=== PATIENT | male | born 1955 | race Caucasian/White ===

== ENCOUNTER → 2019-01-10 16:21 | Outpatient (CLI) | payer OTHER, SELFPAY ==
[2019-01-10 17:26] LABS: Add Manual Diff / Slide Review NO; Basophils Absolute Auto 0 /uL (0-100); Basophils Percent Auto 0.3 % (0-2); Eosinophils Absolute Auto 0 /uL (0-450); Eosinophils Percent Auto 0.5 % (2-4); Hematocrit 46.8 % (41-53); Hemoglobin 15.9 g/dL (13.5-17.5); Lymphocytes Absolute Auto 1100 /uL (1100-4500); Lymphocytes Percent Auto 20.5 % (25-40); Mean Corpuscular HGB Conc 33.9 % (30-36); Mean Corpuscular Volume 94.3 fL (80-100); Monocytes Absolute Auto 400 /uL (0-900); Monocytes Percent Auto 7.9 % (3-14); Neutrophils Absolute Auto 3900 /uL (1500-7000); Neutrophils Percent Auto 70.8 % (50-75); Platelet Count 215 X10^3/uL (150-400); Red Blood Cell Count 4.97 X10^6/uL (4.5-5.9); Red Cell Distribution Width 13.4 % (11.6-14.8); White Blood Cell Count 5.5 X10^3/uL (4.5-11.0)
[2019-01-10 17:31] LABS: Alanine Aminotransferase 23 IU/L (21-72); Albumin 4.3 g/dL (3.5-5.0); Albumin Globulin Ratio 1.7 (1.0-2.8); Alkaline Phosphatase 53 U/L (38-126); Aspartate Aminotransferase 31 IU/L (17-59); BUN Creatinine Ratio 23.8 (6-22); Bilirubin Total 0.7 mg/dL (0.2-1.3); Blood Urea Nitrogen 19 mg/dL (9-20); Calcium 9.9 mg/dL (8.4-10.2); Carbon Dioxide 30 mmol/L (22-32); Chloride 102 mmol/L (98-107); Estimated Glomerular Filt Rate > 60.0 mL/min (>60); Globulin 2.5 g/dL (1.7-4.1); Glucose 94 mg/dL (80-110); HEMOLYSIS 16 (0-50); Potassium 4.2 mmol/L (3.4-5.1); Sodium 139 mmol/L (137-145); Total Protein 6.8 g/dL (6.3-8.2)
== END ==
PROVIDERS: Visit Provider Student in an Organized Health Care Education/Training Program
DX: R10.2 Pelvic and perineal pain (principal)
CPT/HCPCS: 80053; 85025

== ENCOUNTER → 2019-01-12 08:27 | Outpatient (CLI) | payer OTHER, SELFPAY ==
--- NOTE | 2019-01-12 | DI.US.S_ITS ---
PROCEDURE: US ABDOMEN COMPLETE INDICATIONS: Pelvic and perineal pain TECHNIQUE: Real-time scanning was performed of the abdominal and retroperitoneal organs, with image documentation. COMPARISON: None. FINDINGS: Liver: Liver is normal in size and homogeneous in echotexture. Gallbladder: Gallbladder is normal in sonographic appearance without gallstones, gallbladder wall thickening, pericholecystic fluid, or abnormal sonographic Goodman's. Biliary ducts: Intrahepatic bile ducts are non-dilated. Extrahepatic bile duct caliber measures 4 mm. Normal is 6-7 mm or less in diameter, or 10 mm or less post-cholecystectomy. Pancreas: Visualized portions of the pancreas are sonographically normal. Spleen: Spleen is normal in size and homogeneous in echotexture. Kidneys: Kidneys are normal in size and echotexture. Right kidney measures 12.8 cm long; left kidney measures 12.2 cm long. Slight lobular left renal contour without focal mass lesions, likely congenital in etiology. No hydronephrosis or nephrolithiasis. No solid masses. Aorta: Visualized aorta is normal in caliber at less than 3 cm. Iliacs: Proximal common iliac arteries are normal in caliber at less than 2.5 cm. IVC: Intrahepatic inferior vena cava is patent. Miscellaneous: No free abdominal fluid. Limited evaluation of the urinary bladder secondary to incomplete distention prior to start of the study. IMPRESSION: 1. Abdomen without acute sonographic abnormalities. 2. Slight lobular contour of the left kidney without focal mass or hydronephrosis. Findings may be congenital in etiology. 3. Suboptimal visualization of the urinary bladder secondary to minimal distention/filling prior to today's study. Dictated by: Eliot Roberts M.D. on 01/12/2019 at 10:29 Approved by: Eliot Roberts M.D. on 01/12/2019 at 10:33
== END ==
PROVIDERS: PCP Student in an Organized Health Care Education/Training Program; Referring Provider Urology; Visit Provider Student in an Organized Health Care Education/Training Program
DX: R10.2 Pelvic and perineal pain (principal)
CPT/HCPCS: 76700

== ENCOUNTER 2019-04-15 12:33 | Day surgery (SDC) | payer OTHER, SELFPAY ==
[2019-04-15 12:55] VITALS: BMI 24.8
[2019-04-15 13:00] VITALS: BP 129/82; PULSE 67; RESP 12; TEMP 35.9; O2SAT 100
[2019-04-15] MEDS: SODIUM CHLORIDE 0.9% 1,000 ML 200 ML IV (13:08)
--- NOTE | 2019-04-15 13:34 | PM.HP.1 ---
History of Present Illness History of Present Illness Date Patient Seen: 04/15/19 Time Patient Seen: 13:40 Chief complaint: [id number] Narrative: Asymptomatic patient here for a screening colonoscopy Patient History Medical History Diverticulosis (Acute) GERD (gastroesophageal reflux disease) (Acute) Prostate CA (Acute) Family & Social History Social History: household members spouse Meds Home Medications and Allergies Home Medications Medication Instructions Recorded Confirmed Type No Known Home Medications 04/15/19 04/15/19 History Allergies Allergy/AdvReac Type Severity Reaction Status Date / Time No Known Drug Allergies Allergy Verified 04/15/19 12:53 Review of Systems Review of Systems ROS Unobtainable: All systems reviewed & are unremarkable except as noted in HPI and below Exam Vital Signs (past 8 hours): - 04/15/19 13:00 Temperature 96.7 F L Pulse Rate 67 Respiratory Rate 12 Blood Pressure 129/82 Pulse Oximetry 100 Oxygen Delivery Method Room Air Narrative Exam Narrative: 63-year-old white male resting comfortably in bed alert and oriented with no complaints Lungs are clear Heart regular rhythm no murmur Abdomen soft nontender no organomegaly Rectal to be done at colonoscopy Assessment & Plan Assessment & Plan narrative: Patient here for screening colonoscopy is asymptomatic. Last colonoscopy about 5 years ago. Patient has no unanswered questions
[2019-04-15] MEDS: fentaNYL 250 MCG/5 ML INJ IV (14:00)
--- NOTE | 2019-04-15 14:00 | PM.OP.ENDO ---
Operative Date/Time/Diagnoses Date of procedure: 04/15/19 Time of procedure: 14:00 Pre-op diagnosis: Screening colonoscopy Post-op diagnosis: other (Severe sigmoid diverticulosis no diverticulitis) Procedure & Clinicians Study performed: Total colonoscopy to the cecum Surgeon: Mio Garay Procedure Notes SCOAP/Timeout: This was done Procedure in detail: Patient was properly identified during surgical pause. The flexible fiberoptic colonoscope was inserted transanally to the cecum. The patient has rather significant sigmoid diverticulosis without diverticulitis. Patient has no polyps no tumors no ulcerations. Procedures well-tolerated with 3 mg of Versed and 100 micro g of fentanyl given throughout the procedure Scope withdrawal time: 8 Sedation minutes: 16 Findings: diverticulosis Specimen(s): none sent Complications: none Post-procedure Recommendations: Colonscopy in 10 years Disposition: PACU
[2019-04-15] MEDS: MIDAZOLAM 5 MG/5 ML VIAL IV (14:01)
[2019-04-15 14:05] VITALS: BP 119/71; PULSE 64; RESP 16; TEMP 36.4; O2SAT 97
[2019-04-15 14:15] VITALS: BP 120/70; PULSE 68; RESP 16; O2SAT 97
== END 2019-04-15 14:20 | disposition home or self-care (01) ==
PROVIDERS: PCP Student in an Organized Health Care Education/Training Program; Visit Provider Surgery
PROC: 0DJD8ZZ Inspection of Lower Intestinal Tract, Via Natural or Artificial Opening Endoscopic (ICD-10-PCS; CPT 45378; principal; 2019-04-15 13:45)
DX: Z12.11 Encounter for screening for malignant neoplasm of colon (principal); K57.30 Diverticulosis of large intestine without perforation or abscess without bleeding
CPT/HCPCS: 45378; 99152; J2250; J3010